=== PATIENT | female | born 1975 | race Caucasian/White ===

== ENCOUNTER → 2019-08-30 | Outpatient (CLI) | payer SELFPAY ==
[~2019-08-30] VITALS: Ht 178 cm; Wt 100.0 kg
[~2019-08-30] MED LIST: CATHETER FLUSH 10 ML SYR IV PRN
[2019-08-30 12:57] VITALS: BP 155/79
--- NOTE | 2019-08-30 19:09 | STRESS TEST ---
DATE OF SERVICE: EXERCISE MYOVIEW STRESS TEST REPORT REFERRING PHYSICIAN: Dr. Bobby Bowie. Baseline heart rate is 87. Baseline blood pressure 141/95. Baseline EKG is sinus rhythm with no ischemic changes. In summary, the patient was injected with 10.66 mCi of technetium-99 Myoview and the resting images were obtained. Then, the patient started exercising with a baseline heart rate, blood pressure and EKG mentioned above. She was able to exercise for 6 minutes 15 seconds on standard Bora protocol. With peak exercise level, EKG did not show any ischemic changes. During recovery, heart rate and blood pressure returned to baseline. Peak blood pressure was 238/91. The resting and stress images were reviewed and compared in the short axis, horizontal long axis, and vertical long axis views. Review of the images showed decreased uptake involving the anterior wall with mild reversibility. SSS is 6, SDS 6, TID value 0.97. On the gated images, the left ventricle appeared to be normal size with normal contractility. Calculated ejection fraction 57%. CONCLUSION: 1. Good exercise tolerance for a total of 6 minutes 15 seconds on standard Bora protocol, a total of 7.5 METS achieving 92% of maximum expected heart rate. 2. Severe hypertensive response to exercise with peak blood pressure 238/91 returned to baseline during recovery. 3. Baseline right bundle branch block persisted throughout test. 4. Mild ischemia involving the whole anterior wall. 5. Normal left ventricular size with normal contractility. Calculated ejection fraction 57%. Job ID: [id number] DocumentID: [id number] Dictated Date: 08/30/2019 14:57:45 Arm Rest Builder Date: 08/30/2019 19:08:46 Dictated By: RAVI HEMPHILL MD
== END ==
LOC: CARD 08:02
PROVIDERS: ATTEND Internal Medicine Cardiovascular Disease
DX: I45.10 Unspecified right bundle-branch block (principal); I25.89 Other forms of chronic ischemic heart disease; I10 Essential (primary) hypertension; R00.2 Palpitations; Z72.0 Tobacco use
CPT/HCPCS: 78452; 93017; 93306

== ENCOUNTER 2019-09-13 06:36 | Day surgery (SDC) | payer SELFPAY ==
[2019-09-13] VITALS (9 sets, daily range): BP systolic 145–175; BP diastolic 87–106
[~2019-09-13] VITALS: Ht 177 cm; Wt 98.0 kg
--- OUTSIDE RECORDS SUMMARY | 2019-09-13 06:39 | XMS REPORT ---
Author Author Cheryl Harris Organization [facility] [place] Address [address] [place] [address] Care Team Providers Care Solar Pool Heating Installer Name Role Phone Kimberly CISCO Unavailable PROBLEMS Type Condition ICD9-CM Code [id number] Code Onset Dates Condition S tatus SNOMED Code Problem Essential hypertension I10 Active 09299276 Problem Peptic ulcer disease K27.9 Active 75388579 Problem Hyperlipidemia LDL goal <130 E78.5 A ctive 02638721 Problem Metrorrhagia N92.1 Active 4130663 3 Problem Amenorrhea due to Depo Provera N91.2 Active 61737942 Problem Dyspareunia in female N94.10 Active 76111568 Problem Dysmenorrhea N94.6 Active 2297637 00 Problem Irregular menses N92.6 Active 801 08850 Problem Carpal tunnel syndrome, bilateral G56.03 Active [id number] Problem Menometrorrhagia N92.1 Active 314 276071 Problem Dyspareunia due to medical condition in female N94 .19 Active 38786205 Problem Menorrhagia with irregular cycle N92.1 Active 247045034 Problem Postcoital bleeding N93.0 Active 83214121 Problem Status post hysterectomy Z90.710 Activ e 552451331 Problem Menopausal symptoms N95.1 Active 58267125 Problem Chronic pain G89.29 Active 7025847 1 ALLERGIES No Information ENCOUNTERS Encounter Location Date Diagnosis [address] 340B [id number] [place] [address] August, [facility] [address] [place] [address] [facility] [id number] [place] [address] Jul, [facility] [address] [place] [address] [facility] [id number] [place] [address] Jul, Tachycardia R00.0 [facility] [address] [place] [address] [facility] [id number] [place] [address] 14 Jul, 2019 High risk medication use Z79.899 [facility] [address] [place] [address] [facility] [id number] [place] [address] 07 Jul, 2019 [facility] [address] [place] [address] [facility] [id number] [place] [address] 07 Jul, 2019 Tachycardia R00.0 [facility] [address] [place] [address] [facility] [id number] [place] [address] 06 Jul, 2019 [facility] [address] [place] [address] [facility] [id number] [place] [address] 01 Jul, 2019 [facility] [address] [place] [address] [id number] [place] [address] 31 Jun, 2019 [facility] [address] 340B [id number] [place] [address] 31 Jun, 2019 [facility] [address] [place] [address] [place] [id number] [place] [address] 30 Jun, 2019 [facility] [address] [place] [address] [facility] [id number] [place] [address] 30 Jun, 2019 Tachycardia R00.0 and High risk medicati on use Z79.899 [facility] [address] [place] [address] [id number] [place] [address] 24 Jun, 2019 [facility] [address] [place] [address] [id number] [place] [address] 23 Jun, 2019 Chest pain R07.9 [facility] [address] [place] [address] [facility] [id number] [place] [address] 20 Jun, 2019 [facility] [address] [place] [address] [id number] [place] [address] 19 Jun, 2019 Dysuria R30.0 ; 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 ; Dyspareunia due to medical condition in female N94.19 ; Chest pain R07.9 and Carpal tunnel syndrome, bilateral G56.03 [facility] [address] [place] [address] [place] [id number] [place] [address] 18 Jun, 2019 Carpal tunnel syndrome, bilateral G56.03 [facility] [address] [place] [address] [place] [address] [id number] [place] [address] 05 Jun, 2019 Essential hypertension I10 ; Carpal tunn el syndrome, bilateral G56.03 ; Status post hysterectomy Z90.710 and Dermatitis L30.9 [facility] [address] [place] [address] [id number] [place] [address] 04 Jun, 2019 Chronic pain G89.29 [facility] [address] [place] [address] [id number] [place] [address] 03 Jun, 2019 Chronic pain G89.29 [facility] [address] [place] [address] [id number] [place] [address] 03 Jun, 2019 Chronic pain G89.29 [facility] [address] [place] [address] [place] [id number] [place] [address] May, [facility] [address] [place] [address] [place] [address]4800565100KS [place] [address] 29 May, 2019 Chronic pain G89.29 and Essential hypert ension I10 [facility] [address] [place] [address] [place] [id number] [place] [address] Feb, [facility] [address] [place] [address] [place] [id number] [place] [address] 23 Jan, 2019 [facility] [address] [place] [address] [place] [place] [id number] [place] [address] Jan, [facility] [address] [place] [address] [place] [place] [id number] [place] [address] 16 Jan, 2019 Dental examination Z01.20 and Caries K02 .9 [facility] [address] [place] [address] [place] [id number] [place] [address] 15 Jan, 2019 [facility] [address] [place] [address] [place] [id number] [place] [address] 14 Jan, [address] 340B [id number] [place] [address] 19 Dec, 2018 Postoperative examination Z0 9 and Menopausal symptoms N95.1 [facility] [place] [address] [id number] [place] [address] 16 Dec, 2018 [facility] [place] [address] 340B [id number] [place] [address] 16 Dec, 2018 [facility] [place] [address] 340B [id number] [place] [address] 22 Nov, 2018 Postoperative follow-up Z09 [facility] [address] [place] [address] [place] [id number] [place] [address] 19 Nov, 2018 Gastroenteritis K52.9 [facility] [address] [place] [address] [place] [id number] [place] [address] 15 Nov, 2018 [facility] [address] [place] [address] [place] [address] [place] [id number] [place] [address] 14 Nov, 2018 Chest wall pain R07.89 [facility] [address] [place] [address] [place] [address] [place] [id number] [place] [address] 14 Nov, 2018 Dysuria R30.0 and Low iron E61.1 [facility] [address] [place] [address] [place] [id number] [place] [address] 12 Nov, 2018 Status post hysterectomy Z90.710 ; Acute cystitis without hematuria N30.00 and Epigastric pain R10.13 [facility] [place] [address] 340B [id number] [place] [address] 12 Nov, 2018 Dysuria R30.[address] 340B [id number] [place] [address] Oct, Menometrorrhagia N92.1 ; Dys menorrhea N94.6 ; Dyspareunia in female N94.10 ; Uterine leiomyoma, unspecified location D25.9 ; Pelvic pain R10.2 ; Irregular menses N92.6 and Postcoital bleeding N93.0 [facility] [address] [place] [address] [id number] [place] [address] Oct, Fibroid D21.9 [facility] [place] [address] 340B [id number] [place] [address] Sep, Menorrhagia with irregular c ycle N92.1 [facility] [address] 340B [id number] [place] [address] Sep, Menorrhagia with irregular c ycle N92.1 [facility] [address] [place] [address] [place] [address] [id number] [place] [address] Sep, Right upper quadrant pain R10.11 [facility] [address] [place] [address] [facility] [id number] [place] [address] Sep, [facility] [address] [place] [address] [place] [address] [id number] [place] [address] Sep, [facility] [address] [place] [address] [place] [address] [id number] [place] [address] August, [facility] [address] [place] [address] [place] [address] [id number] [place] [address] August, Menorrhagia with irregular cycle N92.1 [facility] [address] [place] [address] [place] [address] [id number] [place] [address] August, Menorrhagia with irregular cycle N92.1 [facility] [place] [address] 340B [id number] [place] [address] August, Epigastric pain R10.13 [facility] [address] [place] [address] [place] [address] [id number] [place] [address] August, [facility] [address] 340B [id number] [facility] [place] [address] August, Epigastric pain R10.13 [facility] [address] [place] [address]50 [facility] [id number] [place] [address] August, [facility] [address] [place] [address] [place] [address] [id number] [place] [address] August, Epigastric pain R10.13 [facility] [address] [place] [address] [place] [id number] [place] [address] 14 Aug, 2018 Amenorrhea due to Depo Provera N91.2 and Peptic ulcer disease K27.9 [facility] [address] [place] [address] [place] [id number] [place] [address] August, Amenorrhea due to Depo Provera N91.2 [facility] [address] [place] [address] [place] [place] [id number] [place] [address] 18 Jul, 2018 Peptic ulcer disease K27.9 and Acute cys titis without hematuria N30.00 [facility] [address] [place] [address] [place] [place] [id number] [place] [address] 17 Jul, 2018 [facility] [address] [place] [address] [place] [address]00565100[place] [address] 15 Jul, 2018 [facility] [address] [place] [address] [place] [address]00565100[place] [address] Jul, Left lateral abdominal pain R10.9 [facility] [address] [place] [address] [place] [id number] [address] Jul, Folliculitis L73.9 [facility] [address] [place] [address] [place] [place] [id number] [address] Jun, Essential hypertension I10 ; Folliculiti s L73.9 and Hyperlipidemia LDL goal <130 E78.5 [facility] [address] [place] [address] [place] [address]00565[place] [address] May, Essential hypertension I10 [facility] [address] [place] [address] [place] [address] [place] [id number] [address] May, [facility] [address] [place] [address] [place] [id number] [address] Apr, Essential hypertension I10 and Folliculi tis L73.9 [facility] [address] [place] [address] [place] [id number] [address] Feb, Dental examination Z01.20 [facility] [address] [place] [id number] [address] [place] [address] Feb, [facility] [place] [address] [place] [id number] [place] [address] Feb, [facility] [place] [address] [place] [id number] [place] [address] Feb, Dental caries extending into pulp K02.9 [facility] [place] [address] [place] [id number] [place] [address], [place] [address] Jan, Dental examination Z01.20 [facility] [place] [address] [place] [id number] [place] [address] Jan, [facility] [place] [address] [place] [id number] [place] [address] Nov, [facility] [place] [address] [place] [id number] [place] [address] Nov, [facility] [place] [address] [place] [address] 13 Sep, 18 [facility] [place] [address] [place] [address] Sep, 18 Dental examination Z01.20 [facility] [place] [address] [place] [address] 13 Sep, 18 Dental examination Z01.20 [place] [id number] [address] [place] [address] Feb, [address] [address] May, 16 Fibromyalgia M79.7 and Weight loss counseling, encounter for Z71.[address] [address] 14 Jul, [address] [address] 13 Jul, 2014 [facility] [address] [place] [address] Jan, 14 [facility] [address] [facility] [id number] [address] [place] [address] Jan, [facility] [place] [address] [place] [address] Dec, 14 [facility] [address] [facility] [id number] [address] [place] [address] Dec, [facility] [place] [address] [place] [address] Dec, 14 [facility] [address] [facility] [id number] [address] [place] [address] Dec, [facility] [address] [place] [address] Dec, 14 [facility] [place] [address] [place] [address] Dec, 14 [facility] [address] [place] [address] [id number] [address] [place] [address] Dec, [facility] [address] [facility] [id number] [address] [place] [address] Dec, IMMUNIZATIONS No Known Immunizations SOCIAL HISTORY Never Assessed REASON FOR VISIT PLAN OF CARE VITAL SIGNS MEDICATIONS Unknown Medications RESULTS No Results PROCEDURES No Known procedures INSTRUCTIONS MEDICATIONS ADMINISTERED No Known Medications MEDICAL (GENERAL) HISTORY Type Description Date Medical History Hypertension Medical History Heart Murmur Medical History High blood pressure Medical History Bipolar Disorder Medical History Carpal Tunnel Syndrome Medical History Fibromyalgia Medical History GERD Surgical History tubal ligation Surgical History Skin Lesion Removal Surgical History [place] Teeth Extractions Surgical History hysterectomy Nov, 2018 Hospitalization History childbirth only Hospitalization History surgery
--- OUTSIDE RECORDS SUMMARY | 2019-09-13 06:40 | XMS REPORT ---
Author Author Cheryl WALTERS Organization [facility] Address [address] [place] [address] Care Team Providers Care Circuit Recorder Name Role Phone MURIEL WALTERS Unavailable PROBLEMS Type Condition ICD9-CM Code SGI55-PN Code Onset Dates Condition S tatus SNOMED Code Problem Unspecified myalgia and myositis 729.1 Active 113998150 ALLERGIES No Information ENCOUNTERS Encounter Location Date Diagnosis [facility] [address] [place] [address] 13 Dec, 18 [facility] [address] [place] [address] 15 Nov, [address] [address] 13 Nov, [address] [address] 13 Sep, [address] [address] 13 Sep, 18 Dental examination Z01.[address] [address] 13 Sep, 18 Dental examination Z01.[address] [address] Feb, [address] [address] 17 May, 16 Fibromyalgia M79.7 and Weight loss counseling, encounter for Z71.[address] [address] 14 Jul, [address] [address] 13 Jul, [address] [address] Jan, 14 [facility] [place] [address] [facility] [id number] [address] [place] [address] Jan, [facility] [place] [address] Dec, 14 [facility] [place] [address] [facility] [id number] [address] [place] [address] Dec, [facility] [place] [address] Dec, 14 [place] [address] [address] [facility] [id number] [address] [place] [address] Dec, [place] [address] [place] [address] Dec, [address] [address] Dec, 14 [place] [address] [address] [facility] [id number] [address] [place] [address] Dec, [place] [address] [address] [facility] [id number] [address] [place] [address] Dec, IMMUNIZATIONS No Known Immunizations SOCIAL HISTORY Never Assessed REASON FOR VISIT PLAN OF CARE VITAL SIGNS MEDICATIONS Medication Instructions Dosage Frequency Start Date End Date Duration S tatus Amoxicillin 500 MG Orally 4 times a day 2 capsules stat and then take 1 capsule 6h 10 days Active Magic Mouthwash Apply medicated swab to sore areas of the mouth to numb the pain As needed Dip cotton swab into medication Sep, As needed Active RESULTS No Results PROCEDURES No Known procedures INSTRUCTIONS MEDICATIONS ADMINISTERED No Known Medications MEDICAL (GENERAL) HISTORY Type Description Date Medical History Hypertension Medical History Heart Murmur Medical History High blood pressure Surgical History tubal ligation
--- OUTSIDE RECORDS SUMMARY | 2019-09-13 06:40 | XMS REPORT ---
Author Author Cheryl WALTERS Organization [facility] [address] Address [address] [place] [address] Care Team Providers Care Tank Washer Name Role Phone MURIEL WALTERS Unavailable PROBLEMS Type Condition ICD9-CM Code DUS15-QY Code Onset Dates Condition S tatus SNOMED Code Problem Unspecified myalgia and myositis 729.1 Active 569266355 ALLERGIES No Information ENCOUNTERS Encounter Location Date Diagnosis [facility] [address] [place] [address] 15 Nov, 18 [facility] [address] [place] [address] 13 Nov, 18 [facility] [address] [place] [address] 13 Sep, 18 [facility] [address] [place] [address] 13 Sep, 18 Dental examination Z01.[address] [address] 13 Sep, 18 Dental examination Z01.[address] [address] Feb, [address] [address] 17 May, 16 Fibromyalgia M79.7 and Weight loss counseling, encounter for Z71.[address] [address] Jul, [address] [address] Jul, [address] [address] 08 Jan, 14 [place] [id number] [address] [place] [address] Jan, [facility] [place] [address] [place] [address] Dec, 14 [facility] [address] [facility] [id number] [address] [place] [address] Dec, [facility] [place] [address] [place] [address] Dec, 14 [facility] [address] [facility] [id number] [address] [place] [address] Dec, [facility] [place] [address] [place] [address] Dec, 14 [facility] [place] [address] Dec, 14 [facility] [address] [facility] [id number] [address] [place] [address] Dec, [facility] [address] [facility] [id number] [address] [place] [address] Dec, IMMUNIZATIONS No Known Immunizations SOCIAL HISTORY Never Assessed REASON FOR VISIT PLAN OF CARE VITAL SIGNS MEDICATIONS Medication Instructions Dosage Frequency Start Date End Date Duration S tatus Amoxicillin 875 MG Orally every 12 hrs (august alt ernate with the Augmentin 875mg tablet every six hours) 1 tablet 10 day(s) A ctive Augmentin 875-125 MG Orally every 12 hrs (august alt ernate with Amoxicllin 875mg tablet switching off every six hours) 1 tablet 10 day(s) Active RESULTS No Results PROCEDURES No Known procedures INSTRUCTIONS MEDICATIONS ADMINISTERED No Known Medications MEDICAL (GENERAL) HISTORY Type Description Date Medical History Hypertension Medical History Heart Murmur Medical History High blood pressure Surgical History tubal ligation Hospitalization History No Hospitalization history informati on
--- OUTSIDE RECORDS SUMMARY | 2019-09-13 06:40 | XMS REPORT ---
Author Author Obed Cheryl Doctor Organization [facility] Address Unknown Phone Unavailable Care Team Providers Care Spool Maker Name Role Phone Migration, Doctor Unavailable Unavailable PROBLEMS Type Condition ICD9-CM Code RJC68-UT Code Onset Dates Condition S tatus SNOMED Code Problem Essential hypertension I10 Active 29791234 Problem Hyperlipidemia LDL goal <130 E78.5 A ctive 73557595 Problem Unspecified myalgia and myositis 729.1 Active [id number] ALLERGIES No Information ENCOUNTERS Encounter Location Date Diagnosis [facility] [address] [place] [phone] Jun, 19 Essential hypertension I10 ; Folliculitis L73.9 and Hyperlipidemia LDL goal <[address] [facility] [address] [place] [phone] May, 19 Essential hypertension I10 [facility] [address] [place] [phone] May, [address] [facility] [address] [place] [phone] Apr, 19 Essential hypertension I10 and Folliculitis L73.[address] [facility] [address] [place] [phone] Feb, 18 Dental examination Z01.20 [facility] [address] [facility] [id number] [place] [address] Feb, [facility] [address] [place] [phone] 09 Feb, [address] [facility] [address] [place] [phone] Feb, 18 Dental caries extending into pulp K02.[address] [facility] [address] [place] [phone] Jan, 18 Dental examination Z01.[address] [facility] [address] [place] [phone] 11 Jan, [address] [facility] [address] [place] [address] 15 Nov, 18 [facility] [address] [place] [address] 13 Nov, 18 [facility] [address] [place] [address] 13 Sep, 18 [facility] [address] [place] [address] 13 Sep, 18 Dental examination Z01.20 [facility] [place] [address] [place] [address] 13 Sep, 18 Dental examination Z01.20 [facility] [address] [id number] [place] [phone] Feb, [facility] [address] [place] [address] May, 16 Fibromyalgia M79.7 and Weight loss counseling, encounter for Z71.3 [facility] [address] [id number] [address] [place] [phone] 14 Jul, 2014 [facility] [address] [place] [id number] [address] [place] [phone] Jul, [facility] [address] [place] [address] 08 Jan, 14 [facility] [address] [place] [id number] [address] [place] [phone] Jan, [facility] [address] [place] [address] Dec, 14 [facility] [address] [facility] [id number] [address] [place] [phone] Dec, [facility] [address] [place] [address] Dec, 14 [facility] [address] [place] [id number] [address] [place] [phone] Dec, [facility] [address] [place] [address] Dec, 14 [facility] [place] [address] [place] [address] Dec, 14 [facility] [address] [facility] [id number] [address] [place] [phone] Dec, [facility] [address] [facility] [id number] [place] [address] Dec, IMMUNIZATIONS No Known Immunizations SOCIAL HISTORY Never Assessed REASON FOR VISIT [facility] PLAN OF CARE VITAL SIGNS MEDICATIONS Medication Instructions Dosage Frequency Start Date End Date Duration S tatus Naproxen 500 mg take 1 tablet by Ora l route 2 times per day with food prn pain Dec, Active Cymbalta 30 mg 1 capsule by Oral route 1 time per day Dec, Active tramadol 50 mg take 1 tablet (50 mg ) by oral route every 4-6 hours as needed PRN pain Dec, Active RESULTS No Results PROCEDURES No Known procedures INSTRUCTIONS MEDICATIONS ADMINISTERED No Known Medications MEDICAL (GENERAL) HISTORY Type Description Date Medical History Hypertension Medical History Heart Murmur Medical History High blood pressure Medical History Bipolar Disorder Surgical History tubal ligation Hospitalization History No Hospitalization history informati on
--- OUTSIDE RECORDS SUMMARY | 2019-09-13 06:40 | XMS REPORT | Continuity of Care Document ---
Author Organization Unknown Address Unknown Phone Unavailable Allergies Active Description Code Type Severity Reaction Onset Reported/Identified Relationship to Patient Clinical Status Yes No Known Drug Allergies [id number] Drug Allergy Unknown N/A 08/30/2019 Medications There is no data. Problems Date Dx Coded Attending Type Code Diagnosis Diagnosed By 12/13/2013 ADELINE KELLER DO 729.1 MYALGIA AND MYOSITIS UNSPECIFIED 09/01/2019 RAVI HEMPHILL MD, Ot I10 ESSENTIAL (PRIMARY) HYPERTENSION 09/01/2019 RAVI HEMPHILL MD, Ot I25. 89 OTHER FORMS OF CHRONIC ISCHEMIC HEART DI 09/01/2019 RAVI HEMPHILL MD, Ot I45. 10 UNSPECIFIED RIGHT BUNDLE-BRANCH BLOCK 09/01/2019 RAVI HEMPHILL MD Ot R00. 2 PALPITATIONS 09/01/2019 RAVI HEMPHILL MD, Ot Z72. 0 TOBACCO USE Procedures There is no data. Results Test Result Range [facility] - 06/03/18 16:06 GLUCOSE 84 mg/dL 65-139 UREA NITROGEN (BUN) 8 mg/dL 7-25 CREATININE 0.60 mg/dL 0.50-1.10 eGFR NON-AFR. ICELANDIC 114 mL/min/1.73m2 > OR = 60 eGFR 132 mL/min/1.73m2 > OR = 60 BUN/CREATININE RATIO NOT APPLICABLE (calc) 6-22 SODIUM 137 mmol/L 135-146 POTASSIUM 3.9 mmol/L 3.5-5.3 CHLORIDE 103 mmol/L 98-110 CARBON DIOXIDE 28 mmol/L 20-32 CALCIUM 9.4 mg/dL 8.6-10.2 [facility] - 07/15/18 16:03 GLUCOSE 81 mg/dL 65-139 UREA NITROGEN (BUN) 6 mg/dL 7-25 CREATININE 0.56 mg/dL 0.50-1.10 eGFR NON-AFR. ICELANDIC 117 mL/min/1.73m2 > OR = 60 eGFR 135 mL/min/1.73m2 > OR = 60 BUN/CREATININE RATIO 11 (calc) 6-22 SODIUM 144 mmol/L 135-146 POTASSIUM 3.9 mmol/L 3.5-5.3 CHLORIDE 108 mmol/L 98-110 CARBON DIOXIDE 26 mmol/L 20-32 CALCIUM 9.4 mg/dL 8.6-10.2 PROTEIN, TOTAL 7.3 g/dL 6.1-8.1 ALBUMIN 4.6 g/dL 3.6-5.1 GLOBULIN 2.7 g/dL (calc) 1.9-3.7 ALBUMIN/GLOBULIN RATIO 1.7 (calc) 1.0-2. 5 BILIRUBIN, TOTAL 0.2 mg/dL 0.2-1.2 ALKALINE PHOSPHATASE 55 U/L 33-115 AST 15 U/L 10-30 ALT 10 U/L 6-29 CBC - 07/15/18 16:03 WHITE BLOOD CELL COUNT 8.1 Thousand/uL 3 .8-10.8 RED BLOOD CELL COUNT 4.41 Million/uL 3.8 0-5.10 HEMOGLOBIN 13.4 g/dL 11.7-15.5 HEMATOCRIT 39.4 % 35.0-45.0 MCV 89.3 fL 80.0-100.0 MCH 30.4 pg 27.0-33.0 MCHC 34.0 g/dL 32.0-36.0 RDW 12.7 % 11.0-15.0 PLATELET COUNT 294 Thousand/uL 140-400 MPV 10.9 fL 7.5-12.5 ABSOLUTE NEUTROPHILS 4706 cells/uL 1500- 7800 ABSOLUTE LYMPHOCYTES 2673 cells/uL 850-3 900 ABSOLUTE MONOCYTES 486 cells/uL 200-950 ABSOLUTE EOSINOPHILS 178 cells/uL 15-500 ABSOLUTE BASOPHILS 57 cells/uL 0-200 NEUTROPHILS 58.1 % NRG LYMPHOCYTES 33.0 % NRG MONOCYTES 6.0 % NRG EOSINOPHILS 2.2 % NRG BASOPHILS 0.7 % NRG CRP - 07/15/18 16:03 C-REACTIVE PROTEIN 3.1 mg/L <8.0 LIPASE - 07/15/18 16:03 LIPASE 14 U/L 7-60 FSH, SERUM - 08/16/18 08:40 FSH 5.3 mIU/mL NRG LH - 08/16/18 08:40 LH 2.7 mIU/mL NRG TSH - 08/16/18 08:40 TSH 0.89 mIU/L NRG PATHOLOGY REPORT (TISSUE PAHOLOGY) - 15:59 A SOURCE NRG A GROSS DESCRIPTION NR A DIAGNOSIS NR CLINICAL INFORMATION NR PATHOLOGIST NR CULTURE, URINE - 11/14/18 17:06 CULTURE, URINE, ROUTINE SEE NOTE NRG CBC - 11/16/18 10:45 WHITE BLOOD CELL COUNT 9.3 Thousand/uL 3 .8-10.8 RED BLOOD CELL COUNT 3.06 Million/uL 3.8 0-5.10 HEMOGLOBIN 9.3 g/dL 11.7-15.5 HEMATOCRIT 28.3 % 35.0-45.0 MCV 92.5 fL 80.0-100.0 MCH 30.4 pg 27.0-33.0 MCHC 32.9 g/dL 32.0-36.0 RDW 13.8 % 11.0-15.0 PLATELET COUNT 324 Thousand/uL 140-400 MPV 10.1 fL 7.5-12.5 ABSOLUTE NEUTROPHILS 6836 cells/uL 1500- 7800 ABSOLUTE LYMPHOCYTES 1339 cells/uL 850-3 900 ABSOLUTE MONOCYTES 874 cells/uL 200-950 ABSOLUTE EOSINOPHILS 214 cells/uL 15-500 ABSOLUTE BASOPHILS 37 cells/uL 0-200 NEUTROPHILS 73.5 % NRG LYMPHOCYTES 14.4 % NRG MONOCYTES 9.4 % NRG EOSINOPHILS 2.3 % NRG BASOPHILS 0.4 % NRG PDM - TRAMADOL - 06/03/19 12:12 Prescribed Drug 1 Tramadol NRG COMMENT NRG Desmethyltramadol NEGATIVE ng/mL <100 medMATCH Desmethyltram INCONSISTENT NRG Tramadol NEGATIVE ng/mL <100 medMATCH Tramadol INCONSISTENT NRG CMP - 06/08/19 13:16 GLUCOSE 90 mg/dL 65-99 UREA NITROGEN (BUN) 11 mg/dL 7-25 CREATININE 0.52 mg/dL 0.50-1.10 eGFR NON-AFR. ICELANDIC 119 mL/min/1.73m2 > OR = 60 eGFR 138 mL/min/1.73m2 > OR = 60 BUN/CREATININE RATIO NOT APPLICABLE (calc) 6-22 SODIUM 146 mmol/L 135-146 POTASSIUM 4.2 mmol/L 3.5-5.3 CHLORIDE 110 mmol/L 98-110 CARBON DIOXIDE 27 mmol/L 20-32 CALCIUM 10.1 mg/dL 8.6-10.2 PROTEIN, TOTAL 6.9 g/dL 6.1-8.1 ALBUMIN 4.6 g/dL 3.6-5.1 GLOBULIN 2.3 g/dL (calc) 1.9-3.7 ALBUMIN/GLOBULIN RATIO 2.0 (calc) 1.0-2. 5 BILIRUBIN, TOTAL 0.4 mg/dL 0.2-1.2 ALKALINE PHOSPHATASE 69 U/L 31-125 AST 14 U/L 10-30 ALT 17 U/L 6-29 CBC - 06/08/19 13:16 WHITE BLOOD CELL COUNT 6.9 Thousand/uL 3 .8-10.8 RED BLOOD CELL COUNT 4.73 Million/uL 3.8 0-5.10 HEMOGLOBIN 14.6 g/dL 11.7-15.5 HEMATOCRIT 42.3 % 35.0-45.0 MCV 89.4 fL 80.0-100.0 MCH 30.9 pg 27.0-33.0 MCHC 34.5 g/dL 32.0-36.0 RDW 13.2 % 11.0-15.0 PLATELET COUNT 241 Thousand/uL 140-400 MPV 11.1 fL 7.5-12.5 ABSOLUTE NEUTROPHILS 4230 cells/uL 1500- 7800 ABSOLUTE LYMPHOCYTES 2063 cells/uL 850-3 900 ABSOLUTE MONOCYTES 428 cells/uL 200-950 ABSOLUTE EOSINOPHILS 131 cells/uL 15-500 ABSOLUTE BASOPHILS 48 cells/uL 0-200 NEUTROPHILS 61.3 % NRG LYMPHOCYTES 29.9 % NRG MONOCYTES 6.2 % NRG EOSINOPHILS 1.9 % NRG BASOPHILS 0.7 % NRG TSH - 06/08/19 13:16 TSH 0.45 mIU/L NRG TSH w/ FREE T4 - 06/22/19 14:45 TSH 0.30 mIU/L NRG T4, FREE 1.2 ng/dL 0.8-1.8 CULTURE, URINE - 06/22/19 15:09 CULTURE, URINE, ROUTINE SEE NOTE NRG PDM - 09 PANEL (PROFILE 1) - 06/22/19 15 :09 Prescribed Drug 1 Tramadol NRG Creatinine 68.0 mg/dL > or = 20.0 pH 7.2 4.5-9.0 Oxidant NEGATIVE mcg/mL <200 Amphetamines NEGATIVE ng/mL <500 medMATCH Amphetamines CONSISTENT NRG Benzodiazepines NEGATIVE ng/mL <100 medMATCH Benzodiazepines CONSISTENT NRG Marijuana Metabolite NEGATIVE ng/mL <20 medMATCH Marijuana Metab CONSISTENT NRG Cocaine Metabolite NEGATIVE ng/mL <150 medMATCH Cocaine Metab CONSISTENT NRG Opiates NEGATIVE ng/mL <100 medMATCH Opiates CONSISTENT NRG Oxycodone NEGATIVE ng/mL <100 medMATCH Oxycodone CONSISTENT NRG COMMENT NRG Barbiturates NEGATIVE ng/mL <300 medMATCH Barbiturates CONSISTENT NRG Methadone Metabolite NEGATIVE ng/mL <100 medMATCH Methadone Metab CONSISTENT NRG Phencyclidine NEGATIVE ng/mL <25 medMATCH Phencyclidine CONSISTENT NRG THYROID ANTIBODIES - 06/26/19 10:00 THYROID PEROXIDASE ANTIBODIES <1 IU/mL <9 THYROGLOBULIN ANTIBODIES <1 IU/mL < or = 1 METANEPHRINES, FRACT LC/MS/MS, RANDOM UR INE - 07/20/19 16:32 METANEPHRINE 73 mcg/g creat 33-192 NORMETANEPHRINE 268 mcg/g creat 85-514 METANEPHRINES, TOTAL 341 mcg/g creat 155 -608 CREATININE, RANDOM URINE 20 mg/dL 20-27 5 D-DIMER - 07/28/19 17:59 D-DIMER, QUANTITATIVE 0.56 mcg/mL FEU <0 .50 TROPONIN I - 07/28/19 17:59 TROPONIN I <0.01 ng/mL < OR = 0.05 Encounters ACCT No. Visit Date/Time Discharge Status Pt. Type Provider Facility Loc./Unit Complaint [id number] 11/18/2018 17:30:09 9 23:59:59 [facility] [id number] 11/18/2018 16:58:23 9 23:59:59 CLS Outpatient [facility] lab [id number] 11/26/2018 04:28:22 ACT Document Registration [id number] 08/30/2019 08:02:00 020 23:59:59 CLS Outpatient RAVI HEMPHILL MD [facility] CARD HTN [id number] 09/13/2019 09:00:00 P EN Preadmit RAVI HEMPHILL MD [facility] CATH ABN STRESS TEST [id number] 12/13/2013 10:08:00 12/13/2013 23:59: 59 CLS Outpatient ADELINE KELLER DO [id number] 11/25/2018 20:01:01 ACT Unknown [id number] 09/12/2019 09:20:00 ACT Outpatient [facility] [address] [place] [id number] 07/28/2019 16:40:00 Document Registration [id number] 07/20/2019 16:32:00 Document Registration [id number] 06/26/2019 09:40:00 Document Registration [id number] 06/22/2019 14:23:00 Document Registration [id number] 06/22/2019 13:20:00 Document Registration [id number] 06/08/2019 11:40:00 Document Registration [id number] 06/03/2019 10:00:00 Document Registration [id number] 11/16/2018 09:40:00 Document Registration [id number] 11/14/2018 16:40:00 Document Registration [id number] 08/22/2018 14:00:00 Document Registration [id number] 08/16/2018 08:00:00 Document Registration [id number] 07/15/2018 14:40:00 Document Registration [id number] 06/03/2018 15:20:00 Document Registration
--- OUTSIDE RECORDS SUMMARY | 2019-09-13 06:40 | XMS REPORT ---
Author Author Cheryl WALTERS Organization [facility] Address [address] [place] [address] Care Team Providers Care Tin Worker Name Role Phone MURIEL WALTERS Unavailable PROBLEMS Type Condition ICD9-CM Code [id number] Code Onset Dates Condition S tatus SNOMED Code Problem Unspecified myalgia and myositis 729.1 Active [id number] ALLERGIES No Known Allergies ENCOUNTERS Encounter Location Date Diagnosis [facility] [address] [place] [phone] 13 Dec, 18 [facility] [address] [place] [address] 15 Nov, [address] [address] 13 Nov, [address] [address] 13 Sep, [address] [address] 13 Sep, 18 Dental examination Z01.[address] [address] 13 Sep, 18 Dental examination Z01.[address] [address] Feb, [address] [address] 17 May, 16 Fibromyalgia M79.7 and Weight loss counseling, encounter for Z71.[address] [address] 14 Jul, [address] [address] 13 Jul, [address] [address] Jan, 14 [facility] [address] [facility] [id number] [address] [place] [phone] Jan, [facility] [address] [place] [address] Dec, 14 [facility] [address] [facility] [id number] [address] [place] [phone] Dec, [facility] [address] [place] [address] Dec, 14 [facility] [address] [facility] [id number] [address] [place] [phone] Dec, [facility] [address] [place] [address] Dec, [address] [place] [address] [place] [address] Dec, 14 [place] [address] [facility] [id number] [address] [place] [phone] Dec, [place] [address] [facility] [id number] [address] [place] [phone] Dec, IMMUNIZATIONS No Known Immunizations SOCIAL HISTORY Never Assessed REASON FOR VISIT AURE[facility] Elo PLAN OF CARE Activity Details Follow Up First available Reason:45 mi n extraction #30 VITAL SIGNS MEDICATIONS Medication Instructions Dosage Frequency Start Date End Date Duration S tatus Johnalta Active tramadol 50 mg take 1 tablet (50 mg ) by oral route every 4-6 hours as needed PRN pain Dec, Not-Taking Naproxen 500 mg take 1 tablet by Ora l route 2 times per day with food prn pain Dec, Not-Taking Lisinopril 10 MG Orally Once a day 1 tablet 24h Active RESULTS No Results PROCEDURES Procedure Date Ordered Result Body Site LTD ORAL EVALUATION - PROBLEM FOCUS September 15, 2017 INTRAORL-PERIAPICAL 1 FILM [id number] September 15, 2017 Dental Outreach adjust balance September 15, 2017 INTRAORL-PERIAPICAL EA ADD FILM September 15, 2017 Billing Notes on claim September 15, 2017 INSTRUCTIONS MEDICATIONS ADMINISTERED No Known Medications MEDICAL (GENERAL) HISTORY Type Description Date Medical History Hypertension Medical History Heart Murmur Medical History High blood pressure Surgical History tubal ligation
--- OUTSIDE RECORDS SUMMARY | 2019-09-13 06:40 | XMS REPORT ---
Author Author Cheryl Harris Organization [facility] Address [address] [place] [address] Care Team Providers Care Bus Mechanic Name Role Phone CISCO Harris Unavailable PROBLEMS Type Condition ICD9-CM Code [id number] Code Onset Dates Condition S tatus SNOMED Code Problem Essential hypertension I10 Active 57336808 Problem Unspecified myalgia and myositis 729.1 Active 588162534 Problem Amenorrhea due to Depo Provera N91.2 Active 83475626 Problem Metrorrhagia N92.1 Active 9084549 3 Problem Menorrhagia with irregular cycle N92.1 Active 356653976 Problem Postcoital bleeding N93.0 Active 59287793 Problem Peptic ulcer disease K27.9 Active 87641573 Problem Status post hysterectomy Z90.710 Activ e 932709768 Problem Hyperlipidemia LDL goal <130 E78.5 A ctive 07307548 Problem Dyspareunia in female N94.10 Active 66095891 Problem Menometrorrhagia N92.1 Active 314 326070 Problem Dysmenorrhea N94.6 Active 6999922 00 Problem Irregular menses N92.6 Active 801 41352 ALLERGIES No Information ENCOUNTERS Encounter Location Date Diagnosis [address] [address] Dec, [address] [address] Nov, Postoperative follow-up Z09 [facility] [address] [place] [id number] 19 Nov, 9 Gastroenteritis K52.9 [facility] [address] [facility] [place] [id number] 15 Nov, 9 [facility] [address] [place] [address] [place] [address] [id number] 14 Nov, 201 9 Chest wall pain R07.89 [facility] [address] [facility] [place] [id number] 14 Nov, 9 Dysuria R30.0 and Low iron E61.1 [facility] [address] [place] [address] [place] [id number] 12 Nov, Status post hysterectomy Z90.710 ; Acute cystitis without hematuria N30.00 and Epigastric pain R10.[address] [address] Nov, Dysuria R30.[address] [address] Oct, Menometrorrhagia N92.1 ; Dysmenorrhea N9 4.6 ; Dyspareunia in female N94.10 ; Uterine leiomyoma, unspecified location D25.9 ; Pelvic pain R10.2 ; Irregular menses N92.6 and Postcoital bleeding N93.0 [facility] [address] [facility] [place] [address] [id number] Oct, 9 Fibroid D21.[address] [address] Sep, Menorrhagia with irregular cycle N92.[address] [address] Sep, Menorrhagia with irregular cycle N92.1 [facility] [address] [facility] [place] [address] [id number] 13 Sep, 9 Right upper quadrant pain R10.11 [facility] [address] [facility] [place] [address] [id number] 13 Sep, 9 [facility] [address] [place] [address] [place] [address] [id number] Sep, 9 [facility] [address] [place] [address] [id number] August, 9 [facility] [address] [address] [place] [address] [id number] August, 9 Menorrhagia with irregular cycle N92.1 [facility] [address] [address] [place] [address] [id number] August, 9 Menorrhagia with irregular cycle N92.[address] [address] 17 Aug, 2018 Epigastric pain R10.13 [facility] [address] [place] [id number] 15 August, 9 [facility] [address] [address] 15 Aug, 2018 Epigastric pain R10.13 [facility] [address] [place] [id number] 14 August, [facility] [address] [place] [id number] 14 August, Epigastric pain R10.13 [facility] [address] [place] [id number] 14 August, Amenorrhea due to Depo Provera N91.2 and Peptic ulcer disease K27.9 [facility] [address] [place] [id number] 13 August, Amenorrhea due to Depo Provera N91.2 [facility] [address] [place] [address] [id number] 18 Jul, Peptic ulcer disease K27.9 and Acute cystitis without hematuria N30.00 [facility] [address] [facility] [place] [address] [id number] 17 Jul, 9 [facility] [address] [address] [place] [address] [id number] 15 Jul, 9 [facility] [address] [place] [address] [id number] 12 Jul, Left lateral abdominal pain R10.9 [facility] [address] [facility] [place] [address] [id number] 02 Jul, 9 Folliculitis L73.9 [facility] [address] [address] [place] [address] [id number] Jun, Essential hypertension I10 ; Folliculitis L73.9 and Hyperlipidemia LDL goal <130 E78.5 [facility] [address] [facility] [place] [address] [id number] May, Essential hypertension I10 [facility] [address] [place] [address] [id number] May, [facility] [address] [facility] [place] [address] [id number] Apr, Essential hypertension I10 and Folliculitis L73.9 [facility] [address] [place] [address] [id number] Feb, 8 Dental examination Z01.20 [place] [id number] [address] [place] [address] Feb, [facility] [address] [place] [address] [id number] 09 Feb, 8 [facility] [address] [place] [address] [id number] Feb, 8 Dental caries extending into pulp K02.9 [facility] [address] [place] [address] [id number] Jan, 8 Dental examination Z01.20 [facility] [address] [place] [address] [id number] Jan, 8 [facility] [address] [place] [address] [id number] 15 Nov, 8 [facility] [address] [place] [address] [id number] 13 Nov, 8 [facility] [address] [place] [address] 13 Sep, 18 [facility] [address] [place] [address] 13 Sep, 18 Dental examination Z01.20 [facility] [address] [place] [address] 13 Sep, 18 Dental examination Z01.20 [place] [id number] [address] [place] [address] Feb, [address] [address] 17 May, 16 Fibromyalgia M79.7 and Weight loss counseling, encounter for Z71.[address] [address] 14 Jul, [address] [address] 13 Jul, [address] [address] 08 Jan, 14 [facility] [address] [facility] [id number] [address] [place] [phone] Jan, [facility] [place] [address] [place] [address] Dec, 14 [facility] [address] [facility] [id number] [address] [place] [address] Dec, [facility] [place] [address] [place] [address] Dec, 14 [facility] [address] [facility] [id number] [address] [place] [phone] Dec, [facility] [address] [place] [address] Dec, 14 [facility] [place] [address] [place] [address] Dec, 14 [place] [address] [place] [id number] [address] [place] [address] Dec, [facility] [address] [facility] [id number] [address] [place] [address] Dec, IMMUNIZATIONS No Known Immunizations SOCIAL HISTORY [...] Surgical History Skin Lesion Removal Surgical History [place] Teeth Extractions Surgical History hysterectomy Nov, 2018 Hospitalization History childbirth only Hospitalization History surgery
--- OUTSIDE RECORDS SUMMARY | 2019-09-13 06:40 | XMS REPORT ---
Author Author Cheryl WALTERS Organization [facility] [address] Address [address] [place] [address] Care Team Providers Care Child Day Care Teacher Name Role Phone MURIEL WALTERS Unavailable PROBLEMS Type Condition ICD9-CM Code [id number] Code Onset Dates Condition S tatus SNOMED Code Problem Unspecified myalgia and myositis 729.1 Active 542292194 ALLERGIES No Information ENCOUNTERS Encounter Location Date Diagnosis [facility] [address] [place] [phone] Feb, 18 Dental examination Z01.20 [facility] [address] [facility] [id number] [address] [place] [address] Feb, [facility] [address] [place] [address] 09 Feb, 18 [facility] [address] [place] [phone] Feb, 18 Dental caries extending into pulp K02.9 [facility] [address] [place] [address] 23 Jan, 18 Dental examination Z01.20 [facility] [address] [place] [phone] Jan, 18 [facility] [address] [place] [address] Nov, 18 [facility] [address] [place] [address] 13 Nov, [address] [address] 13 Sep, 18 [facility] [address] [place] [address] 13 Sep, 18 Dental examination Z01.[address] [address] Sep, 18 Dental examination Z01.20 [facility] [address] [place] [id number] [address] [place] [phone] Feb, [facility] [address] [place] [address] 17 May, 16 Fibromyalgia M79.7 and Weight loss counseling, encounter for Z71.[address] [address] 14 Jul, 2014 [place] [address] [address] Jul, [facility] [address] [place] [phone] Jan, [address] [address] Jan, [facility] [place] [address] [place] [phone] Dec, [address] [address] Dec, [facility] [address] [place] [phone] Dec, 14 [place] [id number] [address] [place] [address] Dec, [facility] [place] [address] [place] [phone] Dec, 14 [facility] [address] [place] [address] Dec, 14 [address] [place] [phone] Dec, [address] [address] Dec, IMMUNIZATIONS No Known Immunizations SOCIAL HISTORY Never Assessed REASON FOR VISIT Pain PLAN OF CARE VITAL SIGNS MEDICATIONS Unknown Medications RESULTS No Results PROCEDURES No Known procedures INSTRUCTIONS MEDICATIONS ADMINISTERED No Known Medications MEDICAL (GENERAL) HISTORY Type Description Date Medical History Hypertension Medical History Heart Murmur Medical History High blood pressure Surgical History tubal ligation Hospitalization History No Hospitalization history informati on
--- OUTSIDE RECORDS SUMMARY | 2019-09-13 06:40 | XMS REPORT ---
Author Author LOPEZCheryl Organization [address] Address [address] [place] [address] Care Team Providers Care Base Remover Name Role Phone VENECIA MARROQUIN Unavailable PROBLEMS Type Condition ICD9-CM Code [id number] Code Onset Dates Condition S tatus SNOMED Code Problem Unspecified myalgia and myositis 729.1 Active 319588395 ALLERGIES No Known Allergies ENCOUNTERS Encounter Location Date Diagnosis [facility] [address] [place] [phone] 13 Dec, 18 [facility] [address] [place] [address] 15 Nov, [address] [address] 13 Nov, [address] [address] 13 Sep, [address] [address] 13 Sep, 18 Dental examination Z01.[address] [address] 13 Sep, 18 Dental examination Z01.20 [place] [id number] [address] [place] [address] Feb, [address] [address] 17 May, 16 Fibromyalgia M79.7 and Weight loss counseling, encounter for Z71.3 [place] [id number] [address] [place] [address] 14 Jul, 2014 [place] [id number] [address] [place] [address] Jul, [address] [address] Jan, 14 [facility] [address] [facility] [id number] [address] [place] [address] Jan, [facility] [address] [place] [address] Dec, 14 [facility] [address] [facility] [id number] [address] [place] [phone] Dec, [facility] [place] [address] Dec, 14 [facility] [address] [facility] [id number] [address] [place] [address] Dec, [place] [address] [place] [address] Dec, 14 [place] [address] [place] [address] Dec, 14 [place] [address] [facility] [id number] [address] [place] [address] Dec, [place] [address] [facility] [id number] [address] [place] [address] Dec, IMMUNIZATIONS No Known Immunizations SOCIAL HISTORY Never Assessed REASON FOR VISIT [facility] PLAN OF CARE VITAL SIGNS MEDICATIONS Medication Instructions Dosage Frequency Start Date End Date Duration S tatus Naproxen 500 mg take 1 tablet by Ora l route 2 times per day with food prn pain Dec, Not-Taking Cymbalta Active tramadol 50 mg take 1 tablet (50 mg ) by oral route every 4-6 hours as needed PRN pain Dec, Not-Taking Lisinopril 10 MG Orally Once a day 1 tablet 24h Active RESULTS No Results PROCEDURES Procedure Date Ordered Result Body Site PROPHYLAXIS - ADULT September 15, 2017 Billing Notes on claim September 15, 2017 Dental Outreach adjust balance September 15, 2017 INSTRUCTIONS MEDICATIONS ADMINISTERED No Known Medications MEDICAL (GENERAL) HISTORY Type Description Date Medical History Hypertension Medical History Heart Murmur Medical History High blood pressure Surgical History tubal ligation
--- OUTSIDE RECORDS SUMMARY | 2019-09-13 06:40 | XMS REPORT ---
Author Author Cheryl WALTERS Organization [facility] [address] [place] Address [address] [place] [address] Care Team Providers Care Diffusion Furnace Operator Name Role Phone MURIEL WALTERS Unavailable PROBLEMS Type Condition ICD9-CM Code [id number] Code Onset Dates Condition S tatus SNOMED Code Problem Unspecified myalgia and myositis 729.1 Active [id number] ALLERGIES No Information ENCOUNTERS Encounter Location Date Diagnosis [facility] [address] [place] [address] [place] [phone] 15 Nov, 18 [facility] [address] [place] [address] 13 Nov, 18 [facility] [address] [place] [address] 13 Sep, 18 [facility] [address] [place] [address] 13 Sep, 18 Dental examination Z01.[address] [address] 13 Sep, 18 Dental examination Z01.[address] [address] Feb, [address] [address] 17 May, 16 Fibromyalgia M79.7 and Weight loss counseling, encounter for Z71.[address] [address] Jul, [address] [address] Jul, [address] [address] 08 Jan, 14 [place] [id number] [address] [place] [address] Jan, [facility] [place] [address] [place] [address] Dec, 14 [facility] [address] [facility] [id number] [address] [place] [address] Dec, [facility] [place] [address] [place] [address] Dec, 14 [facility] [address] [facility] [id number] [address] [place] [phone] Dec, [facility] [place] [address] [place] [address] Dec, 14 [facility] [place] [address] [place] [address] Dec, 14 [facility] [address] [facility] [id number] [address] [place] [phone] Dec, [facility] [address] [facility] [id number] [address] [place] [phone] Dec, IMMUNIZATIONS No Known Immunizations SOCIAL HISTORY Never Assessed REASON FOR VISIT Pain PLAN OF CARE VITAL SIGNS MEDICATIONS Medication Instructions Dosage Frequency Start Date End Date Duration S tatus Augmentin 875-125 MG Orally every 12 hrs (august alt ernate with Amoxicllin 875mg tablet switching off every six hours) 1 tablet 10 day(s) Active Amoxicillin 875 MG Orally every 12 hrs (august alt ernate with the Augmentin 875mg tablet every six hours) 1 tablet 10 day(s) A ctive RESULTS No Results PROCEDURES No Known procedures INSTRUCTIONS MEDICATIONS ADMINISTERED No Known Medications MEDICAL (GENERAL) HISTORY Type Description Date Medical History Hypertension Medical History Heart Murmur Medical History High blood pressure Surgical History tubal ligation Hospitalization History No Hospitalization history informati on
--- OUTSIDE RECORDS SUMMARY | 2019-09-13 06:40 | XMS REPORT ---
Author Author Cheryl GRANT Organization [facility] [address] Address [address] [place] [address] Care Team Providers Care Teletypist Name Role Phone KHLOE GRANT Unavailable PROBLEMS Type Condition ICD9-CM Code JWH69-OX Code Onset Dates Condition S tatus SNOMED Code Problem Peptic ulcer disease K27.9 Active 97683889 Problem Amenorrhea due to Depo Provera N91.2 Active 26623793 Problem Metrorrhagia N92.1 Active 3465737 3 Problem Unspecified myalgia and myositis 729.1 Active 859063365 Problem Dysmenorrhea N94.6 Active 3663930 00 Problem Hyperlipidemia LDL goal <130 E78.5 A ctive 06696361 Problem Irregular menses N92.6 Active 801 75020 Problem Essential hypertension I10 Active 65292582 Problem Menorrhagia with irregular cycle N92.1 Active 870761465 Problem Dyspareunia in female N94.10 Active 95860484 Problem Menometrorrhagia N92.1 Active 314 291771 Problem Postcoital bleeding N93.0 Active 94226933 ALLERGIES No Information ENCOUNTERS Encounter Location Date Diagnosis [address] [address] Nov, [address] [address] Oct, Menometrorrhagia N92.1 ; Dysmenorrhea N9 4.6 ; Dyspareunia in female N94.10 ; Uterine leiomyoma, unspecified location D25.9 ; Pelvic pain R10.2 ; Irregular menses N92.6 and Postcoital bleeding N93.0 [facility] [address] [place] [address] Oct, 19 [address] D21.[address] [address] Sep, Menorrhagia with irregular cycle N92.1 [facility] [address] [address] Sep, Menorrhagia with irregular cycle N92.1 [facility] [address] [place] [address] 13 Sep, 19 Right upper quadrant pain R10.11 [facility] [address] [place] [address] 13 Sep, 19 [facility] [address] [place] [address] Sep, 19 [facility] [address] [place] [address] 29 August, 19 [facility] [address] [place] [address] 24 August, 19 Menorrhagia with irregular cycle N92.1 [facility] [address] [place] [address] 20 August, 19 Menorrhagia with irregular cycle N92.1 [facility] [address] [address] August, Epigastric pain R10.13 [facility] [address] [facility] [address] [place] [address] 15 August, 19 [facility] [address] [address] August, Epigastric pain R10.13 [facility] [address] [place] [address] 14 August, 19 [facility] [address] [place] [address] 14 August, 19 Epigastric pain R10.13 [facility] [address] [place] [address] 14 August, 19 Amenorrhea due to Depo Provera N91.2 and Peptic ulcer disease K27.9 [facility] [address] [place] [address] 13 August, 19 Amenorrhea due to Depo Provera N91.2 [facility] [address] [place] [address] 18 Jul, 19 Peptic ulcer disease K27.9 and Acute cystitis without hematuria N30.00 [facility] [address] [place] [address] 17 Jul, 19 [facility] [address] [place] [address] 15 Jul, 19 [facility] [address] [place] [address] 12 Jul, 19 Left lateral abdominal pain R10.9 [facility] [address] [place] [address] 02 Jul, 19 Folliculitis L73.9 [facility] [address] [place] [address] Jun, 19 Essential hypertension I10 ; Folliculitis L73.9 and Hyperlipidemia LDL goal <130 E78.5 [facility] [address] [place] [address] May, 19 Essential hypertension I10 [facility] [address] [place] [address] May, 19 [facility] [address] [place] [address] Apr, 19 Essential hypertension I10 and Folliculitis L73.9 [facility] [address] [place] [address] Feb, 18 Dental examination Z01.20 [facility] [address] [facility] [id number] [address] [place] [address] Feb, [facility] [address] [place] [address] Feb, 18 [facility] [address] [place] [address] Feb, 18 Dental caries extending into pulp K02.9 [facility] [address] [place] [address] Jan, 18 Dental examination Z01.20 [facility] [address] [place] [address] 11 Jan, 18 [facility] [address] [place] [address] 15 Nov, 18 [facility] [address] [place] [address] 13 Nov, 18 [facility] [address] [place] [address] 13 Sep, 18 [facility] [address] [address] [place] [address] 13 Sep, 18 Dental examination Z01.20 [facility] [address] [address] [place] [address] 13 Sep, 18 Dental examination Z01.20 [facility] [address] [place], [place] [id number] [address] [place] [phone] Feb, [facility] [address] [place] [address] May, 16 Fibromyalgia M79.7 and Weight loss counseling, encounter for Z71.3 [place] [id number] [address] [place] [phone] Jul, [facility] [address] [place] [id number] [address] [place] [phone] Jul, [facility] [address] [place] [address] Jan, 14 [facility] [address] [place] [id number] [address] [place] [phone] Jan, [facility] [address] [address] [place] [address] Dec, 14 [facility] [address] [place] [id number] [address] [place] [address] Dec, [facility] [address] [address] [place] [address] Dec, 14 [facility] [address] [place] [id number] [address] [place] [phone] Dec, [facility] [address] [address] [place] [address] 10 Dec, 14 [facility] [address] [place] [address] Dec, [facility] [address] [facility] [id number] [address] [place] [phone] Dec, [facility] [address] [facility] [id number] [address] [place] [phone] Dec, IMMUNIZATIONS No Known Immunizations SOCIAL HISTORY [...] Surgical History Skin Lesion Removal Surgical History [place] Teeth Extractions Hospitalization History childbirth only
--- OUTSIDE RECORDS SUMMARY | 2019-09-13 06:40 | XMS REPORT ---
Author Author Cheryl WALTERS Organization [facility] [address] Address [address] [place] [address] Care Team Providers Care Health Science Writer Name Role Phone MURIEL WALTERS Unavailable PROBLEMS Type Condition ICD9-CM Code [id number] Code Onset Dates Condition S tatus SNOMED Code Problem Unspecified myalgia and myositis 729.1 Active [id number] ALLERGIES No Known Allergies ENCOUNTERS Encounter Location Date Diagnosis [facility] [address] [place] [phone] Feb, 18 Dental examination Z01.20 [facility] [address] [facility] [id number] [address] [place] [address] Feb, [facility] [address] [place] [phone] 09 Feb, 18 [facility] [address] [place] [address] Feb, 18 Dental caries extending into pulp K02.9 [facility] [address] [place] [address] 23 Jan, 18 Dental examination Z01.20 [facility] [address] [place] [phone] Jan, 18 [facility] [address] [place] [address] Nov, 18 [facility] [address] [place] [phone] 13 Nov, 18 [facility] [address] [place] [phone] 13 Sep, 18 [facility] [address] [place] [address] 13 Sep, 18 Dental examination Z01.20 [facility] [address] [place] [address] Sep, 18 Dental examination Z01.20 [facility] [address] [place] [id number] [address] [place] [phone] Feb, [facility] [address] [place] [address] May, 16 Fibromyalgia M79.7 and Weight loss counseling, encounter for Z71.[address] [address] 14 Jul, 2014 [place] [address] [address] Jul, [facility] [place] [address] [place] [phone] Jan, 14 [place] [address] [address] Jan, [facility] [place] [address] [place] [phone] Dec, 14 [place] [address] [place] [id number] [address] [place] [phone] Dec, [facility] [place] [address] [place] [phone] Dec, 14 [place] [address] [place] [id number] [address] [place] [phone] Dec, [facility] [place] [address] [place] [phone] Dec, 14 [facility] [place] [address] [place] [phone] Dec, 14 [place] [address] [place] [id number] [address] [place] [phone] Dec, [address] [address] Dec, IMMUNIZATIONS No Known Immunizations SOCIAL HISTORY Never Assessed REASON FOR VISIT Extraction PLAN OF CARE Activity Details Follow Up prn Reason: VITAL SIGNS Height 70 in 2018-02-28 Blood pressure systolic 146 mmHg 2018-02-28 Blood pressure diastolic 96 mmHg 2018-02-28 MEDICATIONS Medication Instructions Dosage Frequency Start Date End Date Duration S tatus Amoxicillin 875 MG Orally every 12 hrs (august alt ernate with the Augmentin 875mg tablet every six hours) 1 tablet Feb, 10 day(s) Active Naproxen 500 mg take 1 tablet by Ora l route 2 times per day with food prn pain Dec, Not-Taking [place] 7.5-325 MG Orally every 6 hrs 1 tablet as needed 6h Feb, 2 018 Active Augmentin 875-125 MG Orally every 12 hrs (august alt ernate with Amoxicllin 875mg tablet switching off every six hours) 1 tablet Feb, 10 day(s) Active Amoxicillin 500 MG Orally 4 times a day 2 capsules stat and then take 1 capsule 6h 10 days Not-Taking Amoxicillin 875 MG Orally every 12 hrs (august alt ernate with the Augmentin 875mg tablet every six hours) 1 tablet 10 day(s) N ot-Taking tramadol 50 mg take 1 tablet (50 mg ) by oral route every 4-6 hours as needed PRN pain Dec, Active Amoxicillin 875 MG Orally every 12 hrs (august ernate with the Augmentin 875mg tablet every six hours) 1 tablet 10 day(s) N ot-Taking Clindamycin HCl 300 MG Orally every 6 hrs 2 capsules stat then 1 ca psule 6h Feb, 10 days Active [place] 7.5-325 MG Orally every 6 hrs 1 tablet as needed 6h Jan, 2 018 Not-Taking Magic Mouthwash Apply medicated swab to sore areas of the mouth to numb the pain As needed Dip cotton swab into medication Sep, As needed Active Augmentin 875-125 MG Orally every 12 hrs (august alt ernate with Amoxicllin 875mg tablet switching off every six hours) 1 tablet 10 day(s) Not-Taking Align 4 MG Orally Once a day 1 capsule 24h Feb, 14 d ays Active [place] 7.5-325 MG Orally at bedtime as needed 1 tablet as needed Feb, Active Lisinopril 10 MG Orally Once a day 1 tablet 24h Active Cymbalta Active Augmentin 875-125 MG Orally every 12 hrs (august alt ernate with Amoxicllin 875mg tablet switching off every six hours) 1 tablet 10 day(s) Not-Taking RESULTS No Results PROCEDURES Procedure Date Ordered Result Body Site EXTRAC ERUPTED TOOTH/EXPOSED ROOT Feb 28, 2018 INSTRUCTIONS MEDICATIONS ADMINISTERED No Known Medications MEDICAL (GENERAL) HISTORY Type Description Date Medical History Hypertension Medical History Heart Murmur Medical History High blood pressure Surgical History tubal ligation Hospitalization History No Hospitalization history informati on
--- OUTSIDE RECORDS SUMMARY | 2019-09-13 06:40 | XMS REPORT ---
Author Author Cheryl HA Organization [facility] [address] [facility] Address [address] [place] [address] Care Team Providers Care Motion Study Engineer Name Role Phone JEFFERSON HA Unavailable PROBLEMS Type Condition ICD9-CM Code BCT72-NB Code Onset Dates Condition S tatus SNOMED Code Problem Peptic ulcer disease K27.9 Active 89643083 Problem Amenorrhea due to Depo Provera N91.2 Active 74562555 Problem Metrorrhagia N92.1 Active 6439683 3 Problem Unspecified myalgia and myositis 729.1 Active 944742926 Problem Dysmenorrhea N94.6 Active 7099811 00 Problem Hyperlipidemia LDL goal <130 E78.5 A ctive 62123170 Problem Irregular menses N92.6 Active 801 38447 Problem Essential hypertension I10 Active 81554211 Problem Menorrhagia with irregular cycle N92.1 Active 120817011 Problem Dyspareunia in female N94.10 Active 79932134 Problem Menometrorrhagia N92.1 Active 314 998025 Problem Postcoital bleeding N93.0 Active 92498999 ALLERGIES No Known Allergies ENCOUNTERS Encounter Location Date Diagnosis [address] [address] Oct, Menometrorrhagia N92.1 ; Dysmenorrhea N9 4.6 ; Dyspareunia in female N94.10 ; Uterine leiomyoma, unspecified location D25.9 ; Pelvic pain R10.2 ; Irregular menses N92.6 and Postcoital bleeding N93.0 [facility] [address] [place] [address] Oct, 19 Fibroid D21.[address] [address] Sep, Menorrhagia with irregular cycle N92.[address] [address] 19 Sep, 2018 Menorrhagia with irregular cycle N92.1 [facility] [address] [place] [address] 13 Sep, 19 Right upper quadrant pain R10.11 [facility] [address] [place] [address] 13 Sep, 19 [facility] [address] [place] [address] 12 Sep, 19 [facility] [address] [place] [address] August, 19 [facility] [address] [place] [address] 24 August, 19 Menorrhagia with irregular cycle N92.1 [facility] [address] [place] [address] 20 August, 19 Menorrhagia with irregular cycle N92.[address] [address] August, Epigastric pain R10.13 [facility] [address] [facility] [address] [place] [address] 15 August, [address] [facility] [address] [address] August, Epigastric pain R10.13 [facility] [address] [place] [address] 14 August, 19 [facility] [address] [place] [address] 14 August, 19 Epigastric pain R10.13 [facility] [address] [place] [address] 14 August, 19 Amenorrhea due to Depo Provera N91.2 and Peptic ulcer disease K27.9 [facility] [address] [facility] [address] [place] [address] 13 August, 19 Amenorrhea due to Depo Provera N91.2 [facility] [address] [place] [address] 18 Jul, 19 Peptic ulcer disease K27.9 and Acute cystitis without hematuria N30.00 [facility] [address] [place] [address] 17 Jul, 19 [facility] [address] [place] [address] [place] [address] 15 Jul, 19 [facility] [address] [place] [address] [place] [address] 12 Jul, 19 Left lateral abdominal pain R10.9 [facility] [address] [place] [address] [place] [address] 02 Jul, 19 Folliculitis L73.9 [facility] [address] [place] [address] [place] [address] Jun, 19 Essential hypertension I10 ; Folliculitis L73.9 and Hyperlipidemia LDL goal <130 E78.5 [facility] [address] [place] [phone] May, 19 Essential hypertension I10 [facility] [address] [place] [address] May, 19 [facility] [address] [place] [address] [place] [address] Apr, 19 Essential hypertension I10 and Folliculitis L73.9 [facility] [address] [place] [phone] Feb, 18 Dental examination Z01.20 [facility] [address] [facility] [id number] [address] [place] [address] Feb, [facility] [address] [place] [phone] Feb, 18 [facility] [address] [place] [address] [place] [address] Feb, 18 Dental caries extending into pulp K02.9 [facility] [address] [place] [address] Jan, 18 Dental examination Z01.20 [facility] [address] [place] [address] Jan, 18 [facility] [address] [place] [address] Nov, 18 [facility] [address] [place] [address] Nov, 18 [facility] [place] [address] [place] [address] Sep, 18 [facility] [place] [address] [place] [address] Sep, 18 Dental examination Z01.20 [place] [address] [place] [address] Sep, 18 Dental examination Z01.20 [facility] [address] [place] [id number] [address] [place] [address] Feb, [facility] [address] [place] [address] May, 16 Fibromyalgia M79.7 and Weight loss counseling, encounter for Z71.3 [place] [id number] [place] [address] Jul, [address] [address] Jul, [facility] [address] [place] [address] Jan, 14 [place] [id number] [place] [phone] Jan, [facility] [place] [address] [place] [address] Dec, 14 [place] [id number] [place] [phone] Dec, [facility] [address] [place] [address] Dec, 14 [facility] [address] [place] [id number] [address] [place] [phone] Dec, [facility] [place] [address] [place] [phone] Dec, 14 [facility] [place] [address] [place] [phone] Dec, 14 [facility] [address] [place] [id number] [address] [place] [phone] Dec, [facility] [address] [facility] [id number] [place] [address] Dec, IMMUNIZATIONS No Known Immunizations SOCIAL HISTORY Never Assessed REASON FOR VISIT Blood Pressure, check meds JBishop PLAN OF CARE Activity Details Follow Up 3 Months Reason: VITAL SIGNS Height 70 in 2018-06-03 Weight 208.5 lbs 2018-06-03 Temperature 97.0 degrees Fahrenheit 2018-06-03 Heart Rate 100 bpm 2018-06-03 Respiratory Rate 20 2018-06-03 BMI 29.91 kg/m2 2018-06-03 Blood pressure systolic 132 mmHg 2018-06-03 Blood pressure diastolic 74 mmHg 2018-06-03 MEDICATIONS Medication Instructions Dosage Frequency Start Date End Date Duration S tatus Amoxicillin 875 MG Orally every 12 hrs (august alt ernate with the Augmentin 875mg tablet every six hours) 1 tablet 10 day(s) N ot-Taking Lisinopril 40 MG Orally Once a day 1 tablet 24h 30 d ay(s) Active Cymbalta Active Align 4 MG Orally Once a day 1 capsule 24h Feb, 14 d ays Not-Taking Amoxicillin 875 MG Orally every 12 hrs (august alt ernate with the Augmentin 875mg tablet every six hours) 1 tablet 10 day(s) N ot-Taking [place] 7.5-325 MG Orally every 6 hrs 1 tablet as needed 6h Jan, 2 018 Not-Taking Amoxicillin 500 MG Orally 4 times a day 2 capsules stat and then take 1 capsule 6h 10 days Not-Taking Augmentin 875-125 MG Orally every 12 hrs (august alt ernate with Amoxicllin 875mg tablet switching off every six hours) 1 tablet 10 day(s) Not-Taking [place] 7.5-325 MG Orally at bedtime as needed 1 tablet as needed Feb, Not-Taking Naproxen 500 mg take 1 tablet by Ora l route 2 times per day with food prn pain Dec, Not-Taking Magic Mouthwash Apply medicated swab to sore areas of the mouth to numb the pain As needed Dip cotton swab into medication Sep, As needed Not-Taking [place] 7.5-325 MG Orally every 6 hrs 1 tablet as needed 6h Feb, 2 018 Not-Taking Augmentin 875-125 MG Orally every 12 hrs (august alt ernate with Amoxicllin 875mg tablet switching off every six hours) 1 tablet Feb, 10 day(s) Not-Taking Clindamycin HCl 300 MG Orally every 6 hrs 2 capsules stat then 1 ca psule 6h Feb, 10 days Not-Taking Amoxicillin 875 MG Orally every 12 hrs (august alt ernate with the Augmentin 875mg tablet every six hours) 1 tablet Feb, 10 day(s) Not-Taking Augmentin 875-125 MG Orally every 12 hrs (august alt ernate with Amoxicllin 875mg tablet switching off every six hours) 1 tablet 10 day(s) Not-Taking RESULTS No Results PROCEDURES Procedure Date Ordered Result Body Site BASIC METABOLIC PANEL June 03, 2018 INSTRUCTIONS MEDICATIONS ADMINISTERED No Known Medications MEDICAL (GENERAL) HISTORY Type Description Date Medical History Hypertension Medical History Heart Murmur Medical History High blood pressure Medical History Bipolar Disorder Medical History Carpal Tunnel Syndrome Medical History Fibromyalgia Medical History GERD Surgical History tubal ligation Surgical History Skin Lesion Removal Surgical History [place] Teeth Extractions Hospitalization History childbirth only
--- OUTSIDE RECORDS SUMMARY | 2019-09-13 06:40 | XMS REPORT ---
Author Author Cheryl SELF Organization [facility] [address] Address [address] [place] [address] Care Team Providers Care Human Resource Officer Name Role Phone GREGG SELF Unavailable PROBLEMS Type Condition ICD9-CM Code [id number] Code Onset Dates Condition S tatus SNOMED Code Problem Unspecified myalgia and myositis 729.1 Active 490026021 ALLERGIES No Information ENCOUNTERS Encounter Location Date Diagnosis [facility] [address] [place] [phone] Feb, 18 [facility] [address] [facility] [id number] [address] [place] [address] Feb, [facility] [address] [place] [phone] Feb, 18 [facility] [address] [place] [phone] Feb, 18 Dental caries extending into pulp K02.9 [facility] [address] [place] [phone] Jan, 18 Dental examination Z01.20 [facility] [address] [place] [phone] Jan, 18 [facility] [address] [place] [phone] Nov, 18 [facility] [address] [place] [phone] Nov, 18 [facility] [address] [place] [phone] Sep, 18 [facility] [address] [place] [phone] 13 Sep, 18 Dental examination Z01.20 [facility] [address] [place] [phone] 13 Rodrigue, 20 18 Dental examination Z01.20 [place] [address] [place] [phone] Feb, [facility] [address] [place] [phone] May, 16 Fibromyalgia M79.7 and Weight loss counseling, encounter for Z71.[address] [address] Jul, [place] [address] [address] Jul, [facility] [address] [place] [phone] Jan, 14 [place] [address] [phone] Jan, [facility] [address] [address] Dec, 14 [place] [address] [place] [id number] [address] [place] [phone] Dec, [address] [phone] Dec, 14 [place] [id number] [address] [place] [phone] Dec, [address] [address] Dec, [address] [phone] Dec, 14 [place] [address] [place] [id number] [address] [place] [phone] Dec, [address] [address] Dec, IMMUNIZATIONS No Known Immunizations SOCIAL HISTORY Never Assessed REASON FOR VISIT Refill request PLAN OF CARE VITAL SIGNS MEDICATIONS Medication Instructions Dosage Frequency Start Date End Date Duration S tatus Align 4 MG Orally Once a day 1 capsule 24h Feb, 14 d ays Active Clindamycin HCl 300 MG Orally every 6 hrs 2 capsules stat then 1 ca psule 6h Feb, 10 days Active RESULTS No Results PROCEDURES No Known procedures INSTRUCTIONS MEDICATIONS ADMINISTERED No Known Medications MEDICAL (GENERAL) HISTORY Type Description Date Medical History Hypertension Medical History Heart Murmur Medical History High blood pressure Surgical History tubal ligation Hospitalization History No know Hospitalization history
--- OUTSIDE RECORDS SUMMARY | 2019-09-13 06:40 | XMS REPORT ---
Author Author Cheryl WALTERS [facility] Address [address] [place] [address] Care Team Providers Care Preschool Head Teacher Name Role Phone MURIEL WALTERS Unavailable PROBLEMS Type Condition ICD9-CM Code RLO83-AJ Code Onset Dates Condition S tatus SNOMED Code Problem Unspecified myalgia and myositis 729.1 Active [id number] ALLERGIES No Known Allergies ENCOUNTERS Encounter Location Date Diagnosis [facility] [address] [place] [phone] 23 Jan, 18 Dental examination Z01.20 [facility] [address] [place] [phone] 11 Jan, 18 [facility] [address] [place] [phone] 15 Nov, 18 [facility] [address] [place] [phone] 13 Nov, [address] [address] 13 Sep, 18 [facility] [address] [place] [phone] 13 Sep, 18 Dental examination Z01.20 [facility] [address] [place] [phone] 13 Sep, 18 Dental examination Z01.20 [place] [id number] [place] [phone] Feb, [address] [address] 17 May, 16 Fibromyalgia M79.7 and Weight loss counseling, encounter for Z71.3 [place] [id number] [place] [phone] 14 Jul, 2014 [address] [place] [phone] Jul, [facility] [address] [place] [address] Jan, 14 [facility] [address] [place] [id number] [place] [phone] Jan, [facility] [address] [place] [address] Dec, 14 [facility] [address] [place] [phone] Dec, [place] [address] Dec, 14 [facility] [address] [place] [phone] Dec, [place] [address] Dec, 14 [facility] [address] [place] [phone] Dec, 14 [place] [address] [place] [phone] Dec, [place] [address] [place] [phone] Dec, IMMUNIZATIONS No Known Immunizations SOCIAL HISTORY Never Assessed REASON FOR VISIT Extraction DA/IK PLAN OF CARE Activity Details Follow Up prn Reason: VITAL SIGNS Height 70 in 2018-01-25 Blood pressure systolic 167 mmHg 2018-01-25 Blood pressure diastolic 86 mmHg 2018-01-25 MEDICATIONS Medication Instructions Dosage Frequency Start Date End Date Duration S jr Villatoro Active Amoxicillin 500 MG Orally 4 times a day 2 capsules stat and then take 1 capsule 6h 10 days Not-Taking Magic Mouthwash Apply medicated swab to sore areas of the mouth to numb the pain As needed Dip cotton swab into medication Sep, As needed Active Nome 7.5-325 MG Orally every 6 hrs 1 tablet as needed 6h Jan, 018 Active tramadol 50 mg take 1 tablet (50 mg ) by oral route every 4-6 hours as needed PRN pain Dec, Active Naproxen 500 mg take 1 tablet by Ora l route 2 times per day with food prn pain Dec, Not-Taking Augmentin 875-125 MG Orally every 12 hrs (august alt ernate with Amoxicllin 875mg tablet switching off every six hours) 1 tablet 10 day(s) Not-Taking Amoxicillin 875 MG Orally every 12 hrs (august alt ernate with the Augmentin 875mg tablet every six hours) 1 tablet 10 day(s) N ot-Taking Lisinopril 10 MG Orally Once a day 1 tablet 24h Active Augmentin 875-125 MG Orally every 12 hrs (august alt ernate with Amoxicllin 875mg tablet switching off every six hours) 1 tablet 10 day(s) Not-Taking Amoxicillin 875 MG Orally every 12 hrs (august alt ernate with the Augmentin 875mg tablet every six hours) 1 tablet 10 day(s) N ot-Taking RESULTS No Results PROCEDURES Procedure Date Ordered Result Body Site EXTRAC ERUPTED TOOTH/EXPOSED ROOT Jan 25, 2018 Billing Notes on claim Jan 25, 2018 INSTRUCTIONS MEDICATIONS ADMINISTERED No Known Medications MEDICAL (GENERAL) HISTORY Type Description Date Medical History Hypertension Medical History Heart Murmur Medical History High blood pressure Surgical History tubal ligation Hospitalization History No Hospitalization history informati on
--- OUTSIDE RECORDS SUMMARY | 2019-09-13 06:40 | XMS REPORT ---
Author Author Cheryl WALTERS Organization [facility] Address [address] [place] [address] Care Team Providers Care Port Traffic Manager Name Role Phone MURIEL WALTERS Unavailable PROBLEMS Type Condition ICD9-CM Code [id number] Code Onset Dates Condition S tatus SNOMED Code Problem Unspecified myalgia and myositis 729.1 Active [id number] ALLERGIES No Information ENCOUNTERS Encounter Location Date Diagnosis [facility] [address] [place] [phone] Feb, 18 [facility] [address] [place] [phone] Feb, 18 [facility] [address] [place] [phone] Feb, 18 Dental caries extending into pulp K02.9 [facility] [address] [place] [phone] Jan, 18 Dental examination Z01.20 [facility] [address] [place] [phone] Jan, 18 [facility] [address] [place] [phone] 15 Nov, 18 [facility] [address] [place] [phone] 13 Nov, 18 [facility] [address] [place] [phone] 13 Sep, 18 [facility] [address] [place] [phone] 13 Sep, 18 Dental examination Z01.[address] [address] 13 Sep, 18 Dental examination Z01.20 [facility] [address] [facility] [id number] [address] [address] Feb, [facility] [address] [place] [address] May, 16 Fibromyalgia M79.7 and Weight loss counseling, encounter for Z71.3 [facility] [address] [facility] [id number] [address] [place] [phone] 14 Jul, 2014 [facility] [address] [facility] [id number] [address] [place] [phone] Jul, [facility] [address] [place] [address] Jan, 14 [facility] [address] [facility] [id number] [address] [place] [phone] Jan, [facility] [address] [place] [address] Dec, 14 [facility] [address] [facility] [id number] [address] [place] [phone] Dec, [facility] [address] [place] [address] Dec, 14 [facility] [address] [facility] [id number] [address] [place] [phone] Dec, [facility] [address] [place] [phone] Dec, 14 [facility] [place] [address] [place] [phone] Dec, 14 [facility] [address] [facility] [id number] [address] [place] [phone] Dec, [facility] [address] [facility] [id number] [address] [place] [phone] Dec, IMMUNIZATIONS No Known Immunizations SOCIAL HISTORY Never Assessed REASON FOR VISIT Controlled med refill PLAN OF CARE VITAL SIGNS MEDICATIONS Unknown Medications RESULTS No Results PROCEDURES No Known procedures INSTRUCTIONS MEDICATIONS ADMINISTERED No Known Medications MEDICAL (GENERAL) HISTORY Type Description Date Medical History Hypertension Medical History Heart Murmur Medical History High blood pressure Surgical History tubal ligation Hospitalization History No know Hospitalization history
[2019-09-13] MEDS ORDERED: LIDOCAINE 1% INJ 20 ML 20 ML VIAL ONE (06:57)
[2019-09-13] MEDS ORDERED: NS IV 1000 ML 1,000 ML ONE (06:57)
[2019-09-13] MEDS ORDERED: HEParin (CATH LAB) 2,000 ML IV ONE (06:57)
[2019-09-13] MEDS ORDERED: NS IV 1000 ML 1,000 ML IV SCH ×2 (07:00→08:49)
[2019-09-13 07:24] LABS: BILIRUBIN,URINE NEGATIVE (NEGATIVE); CLARITY,URINE CLEAR; COLOR,URINE YELLOW; GLUCOSE, URINE (UA) NEGATIVE (NEGATIVE); KETONES,URINE NEGATIVE (NEGATIVE); LEUKOCYTE ESTERASE ,URINE NEGATIVE (NEGATIVE); NITRITE,URINE NEGATIVE (NEGATIVE); PROTEIN,URINE NEGATIVE (NEGATIVE)
[2019-09-13 07:25] LABS: HEMOGLOBIN 14.1 G/DL (11.5-16.0); MEAN PLATELET VOLUME 10.1 FL (7.4-10.4); RED CELL DISTRIBUTION WIDTH 13.2 % (10.0-14.5); WHITE BLOOD COUNT 6.2 10^3/uL (4.3-11.0)
[2019-09-13] MEDS ORDERED: LISI40TA PO (07:35)
[2019-09-13] MEDS ORDERED: METO50TA15 PO (07:35)
[2019-09-13 07:37] LABS: INR 0.9 (0.8-1.4); PROTHROMBIN TIME PATIENT 12.7 SEC (12.2-14.7)
[2019-09-13 07:38] LABS: BACTERIA,URINE MODERATE /HPF; WBC,URINE 0-2 /HPF
[2019-09-13 07:45] LABS: ALANINE AMINOTRANSFERASE 12 U/L (0-55); ALBUMIN 4.1 GM/DL (3.2-4.5); ALKALINE PHOSPHATASE 60 U/L (40-136); BILIRUBIN,TOTAL 0.2 MG/DL (0.1-1.0); BUN/CREATININE RATIO 17; CALCIUM 9.2 MG/DL (8.5-10.1); CARBON DIOXIDE 24 MMOL/L (21-32); CHLORIDE 106 MMOL/L (98-107); CHOLESTEROL 217 MG/DL (< 200); GFR ESTIMATED > 60; GLUCOSE 91 MG/DL (70-105); HDL CHOLESTEROL 43 MG/DL (40-60); POTASSIUM 3.9 MMOL/L (3.6-5.0); SODIUM 141 MMOL/L (135-145); TOTAL PROTEIN 6.9 GM/DL (6.4-8.2); TRIGLYCERIDES 137 MG/DL (<150); VLDL CHOLESTEROL 27 MG/DL (5-40)
[2019-09-13] MEDS ORDERED: MIDAZOLAM 5 MG/5 ML (VERSED) VIAL ONE (07:49)
[2019-09-13] MEDS ORDERED: NITRO DRIP 25000 MCG/D5W 250 ML IV ONE (07:50)
[2019-09-13] MEDS ORDERED: HEParin 1000 UNIT/ML (10ML VIAL) FOR BOLUS ONE (07:50)
[2019-09-13] MEDS ORDERED: VERAPAMIL 5 MG/2 ML (CALAN) VIAL IV ONE (07:50)
[2019-09-13] MEDS ORDERED: fentaNYL INJECTION 100 MCG/2 ML AMP ONE (07:50)
--- NOTE | 2019-09-13 08:13 | Diagnostic Imaging Report ---
INDICATION: Abnormal stress exam, chest pain COMPARISON: None available TECHNIQUE: Single radiograph of the chest dated 09/13/2019 FINDINGS: The cardiac silhouette is within normal limits in size. No significant pulmonary vascular congestion. The lungs are clear. No pleural effusion. No pneumothorax. No acute osseous abnormality. IMPRESSION: No acute cardiopulmonary abnormality. Dictated by: Dictated on workstation # [id number]
--- NOTE | 2019-09-13 08:19 | Cardiac Procedure Note-CS/ASA ---
Pre-Procedure Note Pre-Op Procedure Note H&P Reviewed The H&P was reviewed, patient examined and no changes noted. Date H&P Reviewed: Sep 13, 2019 Time H&P Reviewed: 08:19 Conscious Sedation Pre-Proced Time 08:19 ASA Score 3 For ASA 3 and 4: Consider anesthesia and medical clearance. Also, for patients with a history of failed moderate sedation consider anesthesia. Airway Lungs Heart ASA score ASA 1: a normal healthy patient ASA 2: a patient with a mild systemic disease (mid diabetes, controlled hypertension, obesity x ASA 3: a patient with a severe systemic disease that limits activity (angina, COPD, prior Myocardial infarction) ASA 4: a patient with an incapacitating disease that is a constant threat to life (CHF, renal failure) ASA 5: a moribund patient not expected to survive 24 hrs. (ruptured aneurysm) ASA 6: a declared brain- patient whose organs are being harvested. For emergent operations, add the letter E after the classification Mallampati Classification Grade 3 Sedation Plan Analgesia, Amnesia, Plan communicated to team members, Discussed options with patient/fam, Discussed risks with patient/fam The patient is an appropriate candidate to undergo the planned procedure, sedation, and anesthesia. The patient immediately re-assessed prior to indication. RAVI HEMPHILL MD Sep 13, 2019 08:19
--- NOTE | 2019-09-13 08:52 | Cardiac Cath Report ---
Cardiac Cath Report Physician (s)/Crime Specialist (s) Physician RAVI HEMPHILL MD Pre-Procedure Diagnosis Pre-Procedure Diagnosis: Coronary artery disease Post-Procedure Note Procedure Start Date: Sep 13, 2019 Name of Procedure: Left heart catheterization Findings/Procedure Note PROCEDURE NOTE: 43-year-old lady with history of hypertension, hyperlipidemia, had an abnormal stress test with anterior wall ischemia, has been having recurrent chest pain and scheduled for cardiac catheterization possible PTCA. After explaining the procedure to the patient, all pros and cons were explained, all questions were answered. The patient signed the consent and then she was placed on the cardiac catheterization laboratory. Groin was prepped SL fashion local anesthesia was used. Sheath placed in the right radial artery, Lawrence catheter was used and advanced to the left ventricular cavity, pressure was measured, pullback LV to aorta was done, left coronary system was evaluated then it was exchanged into JR catheter, evaluated the right coronary artery. At the end of the procedure the sheath was removed. Vascular band was used FINDINGS: Hemodynamics LV 140/9, end-diastolic pressure of 9 Aorta 125/84 mean of 101 ANATOMY: Left Main is free of obstructive disease Left Anterior Descending has mild to moderate disease in the midportion nonobstructive disease Left Circumflex has no obstructive disease Right Coronory Artery is dominant artery with mild disease nonobstructive disease CONCLUSION: 1. Mild to moderate stenosis in the mid LAD otherwise nonobstructive disease 2. Normal left ventricular end-diastolic pressure DISCUSSION AND RECOMMENDATION: Medical therapy is recommended no intervention is warranted, abnormal stress test is probably due to extracardiac attenuation Anesthesia Type: Conscious Sedation Estimated blood loss (mL): 10 ml Contrast Amount: 40 ml Total Radiation Dose: 311 mGy Post-Procedure Diagnosis Post-operative diagnosis: Chest pain Coronary artery disease Hypertension Hyperlipidemia RAVI HEMPHILL MD Sep 13, 2019 08:52
[2019-09-13] MEDS ORDERED: ATOR10TA PO (09:12)
--- NOTE | 2019-09-13 09:12 | Discharge Inst-Post CATH ---
Discharge Inst-CATH/EP Problems Reviewed?: Yes Post Cardiac Cath/EP D/C Inst Follow Up/Plan Appointment with Dr. Barrow's office in 2-4 weeks <b>CARDIAC CATH/EP PROCEDURE DISCHARGE INSTRUCTIONS</b> ACTIVITY * Go Home directly and rest. * Limit activity of the leg (or wrist if it was used) for 7 days including aerobics, swimming, jogging, bicycling, etc. * Restrict stair-climbing for 7 days if possible, if not, climb up with your non-cath leg, then bring together on the same step. * Avoid lifting, pushing, pulling or excessive movement of the affected extremity for 7 days. * Customary sexual activity may be resumed after 2 days-use caution not to use a position that strains or causes pain to the affected extremity. * No driving for 24 hours. * NO SMOKING. * Avoid straining for bowel movements for 7 days. * Gentle walking on level ground is allowed. * Returning to work will depend on the type of procedure and the results. Your doctor will discuss this with you. CALL YOUR DOCTOR FOR ANY OF THE FOLLOWING: *If bleeding from the puncture site occurs- Apply gentle pressure to site with clean cloth and call your doctor or EMS. * If a knot or lump forms under the skin, increases in size, or causes pain. * If bruising appears to be worsening or moving further down your leg instead of disappearing. * Temperature above 101 F. CARE OF YOUR GROIN INCISION; * Bruising or purple discoloration of the skin near the puncture site is common. * You may shower only, no bathtub bathing for 5 days. Be careful to avoid slipping as your leg may feel stiff. * If a closure device was used on your femoral artery, please see the attached guide regarding care of the device and your leg. * Leave dressing on FOR 24 hours. CARE OF YOUR WRIST INCISION; * Bruising or purple discoloration of the skin near the puncture site is common. * You may shower. * DO NOT submerge wrist. * Leave dressing on FOR 24 hours. RAVI BARROW MD Sep 13, 2019 09:12
== END 2019-09-13 11:50 | disposition home or self-care (01) ==
LOC: CATH 06:36 → SDC 09:02 → CATH 11:50
PROVIDERS: ATTEND Internal Medicine Cardiovascular Disease
DX: I25.10 Atherosclerotic heart disease of native coronary artery without angina pectoris (principal); E66.9 Obesity, unspecified; I10 Essential (primary) hypertension; E78.5 Hyperlipidemia, unspecified; R94.39 Abnormal result of other cardiovascular function study; F17.210 Nicotine dependence, cigarettes, uncomplicated; Z68.31 Body mass index [BMI] 31.0-31.9, adult; Z79.899 Other long term (current) drug therapy; Z80.9 Family history of malignant neoplasm, unspecified
CPT/HCPCS: 36415; 71045; 80053; 80061; 81000; 85027; 85610; 85730; 87081; 93458